=== PATIENT | female | born 1935 | race Caucasian/White ===

== ENCOUNTER 2022-05-03 12:13 | Emergency (ER) | payer MEDICARE ==
[2022-05-03 13:29] LABS: ESTIMATED GFR 49 mL/min (>60)
[2022-05-03] MEDS ORDERED: Cefdinir 300 MG Cap PO ONE (14:08)
== END 2022-05-03 14:43 | disposition home or self-care (01) ==
LOC: JD.ED 12:13
DX: N39.0 Urinary tract infection, site not specified (principal); S80.01XA Contusion of right knee, initial encounter; Z88.5 Allergy status to narcotic agent; W19.XXXA Unspecified fall, initial encounter
CPT/HCPCS: 36415; 80053; 81001; 85025; 86140; 87086; 99284; A9270

== ENCOUNTER 2022-09-23 11:41 | Emergency (ER) | payer MEDICARE, OTHER ==
[2022-09-23] MEDS ORDERED: Lidocaine 1% 10 ML MDV INJECT ONE (12:16)
[2022-09-23] MEDS ORDERED: Lidocaine/EPINEPHrine/Tetracaine Soln 1 ML TOP ONE (12:16)
== END 2022-09-23 14:42 | disposition home or self-care (01) ==
LOC: JD.ED 11:41
DX: S01.511A Laceration without foreign body of lip, initial encounter (principal); Z88.5 Allergy status to narcotic agent; W18.30XA Fall on same level, unspecified, initial encounter
CPT/HCPCS: 12011; 70450; 70450-26; 99283; J3490

== ENCOUNTER 2023-01-12 15:51 | Emergency (ER) | payer MEDICARE, OTHER ==
[2023-01-12] MEDS ORDERED: Sodium Chloride 0.9% 10 ML Syringe FLUSH PRN (16:24)
[2023-01-12] MEDS ORDERED: VANCOmycin 1.5 GM/300 ML 1.5 GM in Premix Bag 1 BAG IV ONE (16:45)
[2023-01-12 17:12] LABS: HEMATOCRIT 30.7 % (37.0-47.0); HEMOGLOBIN 9.6 gm/dl (12.0-16.0); MEAN CORPUSCULAR HEMOGLOBIN 29.9 pg (28.0-32.0); MEAN CORPUSCULAR HGB CONC 31.3 g/dl (32.0-36.0); MEAN CORPUSCULAR VOLUME 95.6 fl (83.0-99.0); MEAN PLATELET VOLUME 10.3 fl (9.4-12.3); PLATELET COUNT,PLT 227 K/mm3 (150-400); RED BLOOD CELL COUNT 3.21 M/mm3 (4.10-5.30); WHITE BLOOD CELL COUNT,WBC 8.21 K/mm3 (3.9-11.3)
[2023-01-12 17:28] LABS: INR < 0.93; PROTHROMBIN TIME 9.8 SECONDS (9.7-12.0)
[2023-01-12 17:34] LABS: BAND PERCENT MAN 0 % (0-10); BASOPHILS PERCENT MAN 0 (0.1-1.2); EOSINOPHILS PERCENT MAN 2 % (0.7-5.8); LYMPHOCYTES % ATYPICAL MANUAL 0 %; LYMPHOCYTES PERCENT MAN 28 % (20-40); MONOCYTES PERCENT MAN 5 % (2-10)
[2023-01-12 17:34] LABS: LACTIC ACID 0.5 mmol/L (0.4-2.0)
[2023-01-12 17:39] LABS: ANISOCYTOSIS 1+ SLIGHT; OVALOCYTES 1+ SLIGHT; POIKILOCYTOSIS 1+ SLIGHT
[2023-01-12 17:40] LABS: PLATELET COUNT ESTIMATE ADEQUATE
[2023-01-12 17:41] LABS: ALANINE AMINOTRANSFERASE,ALT 15 U/L (14-59); ALBUMIN 3.4 g/dl (3.4-5.0); ALKALINE PHOSPHATASE 73 U/L (46-116); ANION GAP 12.7 (5-15); ASPARTATE AMNIOTRANSFERASE,AST 24 U/L (15-37); BILIRUBIN TOTAL 0.2 mg/dL (0.2-1.0); BLOOD UREA NITROGEN,BUN 42 mg/dL (7-18); C-REACTIVE PROTEIN 0.6 mg/dL (<1.0); CALCIUM 9.4 mg/dL (8.5-10.1); CARBON DIOXIDE,CO2 28 mEq/L (21-32); CHLORIDE,CL 103 mEq/L (98-107); CREATININE 1.2 mg/dL (0.55-1.02); ESTIMATED GFR 44 mL/min (>60); GLUCOSE RANDOM 101 mg/dL (70-99); PROTEIN TOTAL,TP 6.7 g/dl (6.4-8.2); SODIUM,NA 139 mEq/L (136-145)
[2023-01-12 17:43] LABS: POTASSIUM,K 4.7 mEq/L (3.5-5.1)
== END 2023-01-12 19:53 | disposition home or self-care (01) ==
LOC: JD.ED 15:51
DX: I87.2 Venous insufficiency (chronic) (peripheral) (principal); L97.828 Non-pressure chronic ulcer of other part of left lower leg with other specified severity; R60.0 Localized edema; Z88.5 Allergy status to narcotic agent; Z91.018 Allergy to other foods
CPT/HCPCS: 36415; 73590; 80053; 83605; 85007; 85027; 85610; 86140; 87040; 93971; 96365; 99284; J3370; J3490